=== PATIENT | male | born 1955 | race Caucasian/White ===

== ENCOUNTER 2021-07-27 06:20 | Day surgery (SDC) | payer OTHER ==
[~2021-07-27] VITALS: Ht 175.3 cm; Wt 77.0 kg
[~2021-07-27 06:20] MED LIST: LOVENOX80 MG/0.8 SUB-Q; WARFARIN SODIUM5 MG PO
--- NOTE | 2021-07-27 08:47 | NUR ---
07/27/21 0847 Shanelle Patino 0820 PT ARRIVED TO PACU ON 3L VIA OXYMASK. VSS. PT WAKES EASILY AND IS REORIENTED TO PACU. PT REPORTS A HEADACHE. NEW ORDER RECEIVED FROM TEA BLENDER. NEUROLOGY TECHNICIAN AT BEDSIDE HOLDING PRESSURE ON OP SITE PER MD. SMALL AMOUTN OF DRAINAGE NOTED ON PILLOW. 0833 XRAY AT BEDSIDE AND HOB INCREASED. O2 REMOVED. 0845 PT REPORT NO PAIN "JUST A LITTLE PRESSURE." VSS. EDUCATION GIVEN ON PLAN OF CARE.
[2021-07-27] MEDS ORDERED: HYDROCODON-ACE1 EA10 PO (09:00)
[2021-07-27] MEDS ORDERED: ACETAMINOPHEN500 MG PO (09:01)
--- NOTE | 2021-07-31 09:11 | OR ---
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 PROCEDURES: 1. Placement of left subclavian Port-A-Cath device (Bard port catheter). 2. Surgeon-directed fluoroscopy. ANESTHESIA: Intravenous sedation and local, 0.25% Marcaine with epinephrine. INDICATION: This 66-year-old white man is a patient of Dr. 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 He has extensive involvement of cervical lymph nodes. The patient is chronically anticoagulated with warfarin on the basis of a mitral valve replacement a few years ago. He is admitted at this time to undergo placement of a Port-A-Cath for anticipated chemotherapy. The cervical area is an unlikely site for insertion of the catheter based on his adenopathy and neck swelling. He has had tracheostomy in the past, radiation therapy to the upper aerodigestive tract and other interventions that indicate the most appropriate approach would be a left subclavian vein. The patient is on bridge therapy of Lovenox 80 mg subcutaneously b.i.d. and off his Coumadin. Preoperative antibiotic gentamicin and ampicillin were given on the basis of his mitral valve replacement history. FINDINGS: The patient had multiple advanced comorbidities both anatomic and medical but the catheter was placed successfully with good function. The catheter is functional. The postprocedure chest x-ray shows good position of the tip of the catheter and no complication related to the Electronically Signed By: BASIL MCCULLOUGH MD 07/27/21 6343 Electronically Signed By: BASIL MCCULLOUGH MD 07/31/21 0400 PATIENT NAME: AURA RUFF OPERATIVE REPORT DATE OF : 59 REPORT #: [id number] PHYSICIAN: BASIL MCCULLOUGH MD PCP: ANABELL TREJO MD REPORT IS CONFIDENTIAL AND NOT TO BE RELEASED WITHOUT AUTHORIZATION [facility] [address], [place] [address] Signed procedure. DESCRIPTION OF PROCEDURE: The patient was brought to the operating room, and placed in a wedge pillow position. He has scarring of his neck from prior tracheostomy and bulky adenopathy of the neck. Arms were placed at the side. Preoperative antibiotics were given as previously described. Given his baseline dyspnea and so forth, the patient could not be put in the Trendelenburg position to any real degree. Upper torso was clipped and prepared with a chlorhexidine solution and draped sterilely. 0.25% Marcaine with epinephrine injected in the left infraclavicular space. Using the Seldinger technique with Bard port catheter kit, the left subclavian vein was easily accessed showing dark nonpulsatile blood. A flexible J-wire was passed down the needle without problem. Fluoroscopy confirmed the wire to be in the right heart as appropriate. Additional local anesthetic was injected transversely over the left pectoralis. Transverse incision was made and dissection was carried through the subcutaneous tissue with electrocautery with meticulous care regarding hemostasis. The pocket thus created allowed for partial placement of a port device, it had been inspected and flushed. The site from which the wire emanated was incised with an #11 blade and subsequently dilator and ultimately a peel-away introducer and dilator. The wire and dilator were removed showing dark retrograde blood flow. The previously inspected Groshong-tip catheter was passed down the sheath introducer, was stabilized and the peel-away sheath introducer removed. Aspiration on the catheter showed dark nonpulsatile blood with easy flushing. Fluoroscopy was once again undertaken with some radiopaque contrast allowing for withdrawal of the catheter to the optimal position of the superior vena cava. The tunneling device was used to deliver the catheter to the pocket site. It was trimmed to appropriate length and secured to the port device per manufacture's instructions with the enclosed collar device. The port was secured to the pectoralis fascia with interrupted Vicryl suture. Accessed with an angled Nascimento needle showed easy withdrawal of blood and easy infusion of heparinized saline and a final fluoroscopic view showed good contour to the catheter and good position. The skin was then closed with running subcuticular 3-0 Vicryl. Steri-Strips were applied to each site including the puncture site and an Acticoat dressing applied. Pressure was applied to the area and based on his bridge therapy anticoagulation, which of course does increase the risk of ecchymosis or hematoma formation. He was then taken to the recovery room in good condition having suffered no complication. He tolerated the procedure well despite its complexity. Electronically Signed By: BASIL MCCULLOUGH MD 07/27/21 1432 Electronically Signed By: BASIL MCCULLOUGH MD 07/31/21 1724 PATIENT NAME: AURA RUFF OPERATIVE REPORT DATE OF : 59 REPORT #: [id number] PHYSICIAN: BASIL MCCULLOUGH MD PCP: ANABELL TREJO MD REPORT IS CONFIDENTIAL AND NOT TO BE RELEASED WITHOUT AUTHORIZATION [facility] [address] [place] [id number] Signed MD LAURIE Bermeo/KEYSHAWN /[id number] cc: Anabell Trejo MD Copies: ANABELL TREJO MD ~ Electronically Signed By: BASIL MCCULLOUGH MD 07/27/21 1432 Electronically Signed By: BASIL MCCULLOUGH MD 07/31/21 1724 PATIENT NAME: AURA RUFF OPERATIVE REPORT DATE OF : 59 REPORT #: [id number] PHYSICIAN: BASIL MCCULLOUGH MD PCP: ANABELL TREJO MD REPORT IS CONFIDENTIAL AND NOT TO BE RELEASED WITHOUT AUTHORIZATION
== END 2021-07-27 09:28 | disposition home or self-care (01) ==
LOC: DS 06:20
PROVIDERS: ATTEND Surgery
PROC: 05H633Z Insertion of Infusion Device into Left Subclavian Vein, Percutaneous Approach (ICD-10-PCS; principal; 2021-07-27 07:00)
DX: C01 Malignant neoplasm of base of tongue (principal); C78.00 Secondary malignant neoplasm of unspecified lung; R59.0 Localized enlarged lymph nodes; J68.3 Other acute and subacute respiratory conditions due to chemicals, gases, fumes and vapors; Z95.2 Presence of prosthetic heart valve
CPT/HCPCS: 00532; 71045; 77001; C1788; J0290; J1100; J1580; J1644; J1885; J2704; J7121

== ENCOUNTER 2021-12-25 11:05 | Inpatient (IN) | payer OTHER ==
[~2021-12-25] VITALS: Ht 175.3 cm; Wt 77.4 kg
[~2021-12-25 11:05] MED LIST changes: +ACETAMINOPHEN500 MG PO; +ALBUTEROL2.5 MG/3 M INH; +CARAFATE1 GM/10 ML PT; +DECADRON4 MG PT; +DOCETAXEL IV; +FERRETTS I40 MG/15 M PT; +HYDROCODON-ACE1 EA10 PO; +JANTOVEN5 MG PT; +LASIX20 MG PT; +ONDANSETRON ODT8 MG SL; +OXYCODONE10 MG/0.5 PT; +PANTOPRAZOLE SO40 MG PT; -WARFARIN SODIUM5 MG PO
--- OUTSIDE RECORDS SUMMARY | 2021-12-25 11:08 | XMS ---
PreManage Notification: AURA RUFF Security Blocklayer Events No recent Security Events currently on file CRITERIA MET - [facility] PROVIDERS DARCY DICKERSON [facility] Current PHONE: [phone] PARVIZ Rizzo [facility] 01/05/2016-Current PHONE: Unknown Nataliia has no Care Guidelines for this patient. Papi VISIT COUNT (12 MO.) 3 Geena Roque TOTAL 4 NOTE: Visits indicate total known visits. ED/UCC VISIT TRACKING (12 MO.) 12/25/2021 11:[address] [facility] TYPE: Emergency COMPLAINT: - NECK SWELLING 11/11/2021 18:36 [facility] Felicia [facility] TYPE: Emergency DIAGNOSES: - o2 level low - Malignant neoplasm of base of tongue - Pneumonitis due to inhalation of food and vomit - Pneumonia, unspecified organism - Shortness of Breath [facility] [place] [facility] DIAGNOSES: - GI bleed - Gastrointestinal hemorrhage, unspecified [facility] [place] [facility] DIAGNOSES: - Hemorrhagic disorder due to extrinsic circulating anticoagulants - Adverse effect of anticoagulants, initial encounter - Presence of prosthetic heart valve - Secondary malignant neoplasm of other specified sites - Melena - Personal history of pulmonary embolism - Other chronic pain - Hemorrhage of anus and rectum - Gastrointestinal hemorrhage, unspecified - Personal history of other venous thrombosis and embolism - GI Bleeding - GI bleed INPATIENT VISIT TRACKING (12 MO.) 11/11/2021 18:[facility] [place] [facility] DIAGNOSES: - Malignant neoplasm of base of tongue - Other iron deficiency anemias - Pneumonia, unspecified organism - Pneumonitis due to inhalation of food and vomit - Iron deficiency anemia secondary to blood loss (chronic) - Mild intermittent asthma with (acute) exacerbation - Pneumonia due to Methicillin susceptible Staphylococcus aureus - Acute respiratory failure with hypoxia - Hypotension, unspecified 10/14/2021 07:37 [facility] Terrell [facility] TYPE: Surgical Services DIAGNOSES: - Presence of prosthetic heart valve - Encounter for palliative care - senior living (current) use of anticoagulants - Secondary malignant neoplasm of other specified sites - Other specified counseling - Failed or difficult intubation, subsequent encounter - Malignant neoplasm of base of tongue - Lymphedema, not elsewhere classified - Acute posthemorrhagic anemia - Secondary malignant neoplasm of unspecified lung - Chronic or unspecified duodenal ulcer with hemorrhage - Duodenal ulcer, unspecified as acute or chronic, without hemorrhage or perforation - Paralysis of vocal cords and larynx, unilateral - Gastrointestinal hemorrhage, unspecified 09/29/2021 10:04 [facility] Terrell [facility] TYPE: Surgical Services DIAGNOSES: - Adverse effect of anticoagulants, initial encounter - Personal history of other venous thrombosis and embolism - Hemorrhage of anus and rectum - Hemorrhagic disorder due to extrinsic circulating anticoagulants - Melena - Other chronic pain - Presence of prosthetic heart valve - Gastrointestinal hemorrhage, unspecified - Presence of other specified devices - Personal history of pulmonary embolism - Secondary malignant neoplasm of other specified sites - Mild intermittent asthma, uncomplicated - groutman (current) use of anticoagulants - Abnormal findings on diagnostic imaging of other parts of digestive tract [email or web address]
[2021-12-25] MEDS ORDERED: DOCU LIQUI50 MG/5 ML PT (16:40)
[2021-12-25] MEDS ORDERED: IPRAT-ALBUT 0.5-3 ML INH (17:09)
[2021-12-25] MEDS ORDERED: FUROSEMIDE20 MG PO (17:17)
[2021-12-25] MEDS ORDERED: PROTONIX40 M1 PT (17:24)
[2021-12-25] MEDS ORDERED: FERROUS SU220 MG/52 PT (17:25)
[2021-12-27] MEDS ORDERED: VIBRAMYCIN50 MG/5 ML PO (12:48)
[2021-12-27] MEDS ORDERED: CEFPODOXIM100 MG/5 M PO (12:49)
[2021-12-27] MEDS ORDERED: VIBRAMYCIN25 MG/5 ML PO (13:39)
[2021-12-27] MEDS ORDERED: DOXYCYCLINE HY100 MG PO (13:40)
[2021-12-27] MEDS ORDERED: CEFPODOXIME PR200 MG PO (13:41)
== END 2021-12-27 14:15 | disposition home or self-care (01) | DRG 206 ==
LOC: ED 11:05 → MS 13:50
PROVIDERS: ADMIT Hospitalist; ATTEND Hospitalist
DX: J95.02 Infection of tracheostomy stoma (principal); L03.221 Cellulitis of neck; C79.89 Secondary malignant neoplasm of other specified sites; Z20.822 Contact with and (suspected) exposure to COVID-19; G89.4 Chronic pain syndrome; C02.9 Malignant neoplasm of tongue, unspecified; G89.3 Neoplasm related pain (acute) (chronic); Z86.711 Personal history of pulmonary embolism; Z86.718 Personal history of other venous thrombosis and embolism; Z88.6 Allergy status to analgesic agent; Z95.4 Presence of other heart-valve replacement; Z79.899 Other long term (current) drug therapy; Y83.3 Surgical operation with formation of external stoma as the cause of abnormal reaction of the patient, or of later complication, without mention of misadventure at the time of the procedure
CPT/HCPCS: 36415; 70491; 80048; 80202; 85025; 85610; 87502; 94799; C9113; C9803; J0692; J3370; J7030; J7060; J7121; Q9967; U0003